=== PATIENT | male | born 1935 | race Caucasian/White ===

== ENCOUNTER 2016-06-19 09:29 | Emergency (ER) | payer MEDICARE, BC ==
[~2016-06-19] VITALS: Ht 167.6 cm; Wt 78.0 kg
[~2016-06-19 09:29] MED LIST: ASCO500C PO; TAB-TAB PO; VITA20003 PO; ZOCO40TA PO; ZOFR4TAB PO
[2016-06-19 09:33] VITALS: BP 130/73; PULSE 74; RESP 16; TEMP 97.7; O2SAT 99
[2016-06-19] MEDS ORDERED: SIMV40TA PO (09:43)
[2016-06-19] MEDS ORDERED: KETOROLAC TROMETHAMINE 60 MG/2 ML (IM) VIAL IM ONE (09:45)
--- NOTE | 2016-06-19 09:46 | PD ---
HPI Chief Complaint: Musculoskeletal Complaint Time Seen by Provider: 09:38 Travel History International Travel<30 days: No Contact w/Intl Traveler<30days: No Traveled to known affect area: No History of Present Illness HPI Patient is a 81 year old male who comes in complaining of pain to his right knee. He says it has been hurting since last Saturday since playing golf. He says that it started hurting the day after playing golf, but he denies any direct injury to the knee. He says he rested for a few days and then when he played golf again his knee started to hurt again. He said again he rested and it felt better, he played golf yesterday and it is hurting him again. He has been taking Tylenol for the pain, which she says only helps marginally. He denies any falls or trauma to the knee itself. He says he had issues with the left knee and received a steroid shot in the knee that has helped immensely. He denies any other complaints at this time. [facility] Past Medical History High Cholesterol: Yes Immunizations Current: Yes Social History Alcohol Use: Yes (SOC) Tobacco Use: No (NEVER) Substance Use: No Allergies-Medications (Allergen,Severity, Reaction): Coded Allergies: No Known Allergies (Unverified , 06/19/16) Reported Meds & Prescriptions Reported Meds & Active Scripts Active Voltaren Topical (Diclofenac Topical) 1% Gel 1 Applic TOPICAL QID Reported Simvastatin 40 Mg Tab 40 Mg PO HS Review of Systems General / Constitutional: No: Fever, Chills Eyes: No: Blurred Vision HENT: No: Headaches Cardiovascular: No: Chest Pain or Discomfort Respiratory: No: Shortness of Breath Musculoskeletal: Positive: Pain, No: Edema Skin: No Rash, No Change in Pigmentation Neurologic: No: Weakness, Dizziness Physical Exam Narrative GENERAL: Awake and alert in no acute distress. SKIN: Warm and dry. HEAD: Atraumatic. Normocephalic. EYES: Pupils equal and round. No scleral icterus. ENT: Mucous membranes pink and moist. CARDIOVASCULAR: Regular rate and rhythm. No murmur appreciated. RESPIRATORY: No accessory muscle use. Clear to auscultation. Breath sounds equal bilaterally. MUSCULOSKELETAL: No obvious deformities. No clubbing. No cyanosis. No edema. No joint warmth or edema of the right knee. Able to fully extend and flex the knee. No joint laxity. Some pain behind the knee with extension. NEUROLOGICAL: Awake and alert. No obvious cranial nerve deficits. Motor grossly within normal limits. Normal speech. Data Data Last Documented VS Vital Signs Date Time Temp Pulse Resp B/P Pulse Ox O2 Delivery O2 Flow Rate FiO2 06/19/16 09:43 74 16 06/19/16 09:33 97.7 130/73 99 Orders Ketorolac Inj (Toradol Inj) (06/19/16 09:45) Knee, Complete (4vws) (06/19/16 ) ^ Shant Bandage (06/19/16 10:16) MDM Medical Decision Making Medical Screen Exam Complete: Yes Emergency Medical Condition: Yes Differential Diagnosis Knee sprain versus knee fracture versus meniscal injury versus ACL injury versus arthritis Narrative Course Patient is an 81-year-old male comes in complaining of right knee pain. The pain seems to come on after he plays around of golf. There is no direct trauma. Exam shows some pain with extension of his knee. X-ray of the knee performed shows some arthritis, no acute findings. Shant wrap applied to the knee. Patient given a dose of Toradol. Will be discharged with prescription for Voltaren cream. Advised follow-up with orthopedics. Advised to return to the ED as needed for any worsening symptoms. Diagnosis Primary Impression: Knee strain Qualified Code: S86.911A - Knee strain, right, initial encounter Referrals: Kelechi Joseph MD call for appointment Patient Instructions: General Instructions, Knee Sprain (ED) Additional Instructions: Avoid physical exertion for the next week. Wear the shant wrap for stability and comfort. Take Tylenol as needed for pain. You can apply the voltaran cream as needed for pain. Follow up with orthopedics. Return to the ED as needed for any worsening symptoms. Scripts Diclofenac Topical (Voltaren Topical)1% Gel1 Applic TOPICAL QID #100 GM Ref 0 Prov:Ysabel Ybarra MD 06/19/16 Disposition: 01 DISCHARGE HOME Condition: Stable Ysabel Ybarra MD Jun 19, 2016 09:46
--- NOTE | 2016-06-19 10:18 | RADHPO ---
EXAM DATE/TIME: 06/19/2016 09:55 [facility] COMPARISON: No previous studies available for comparison. INDICATIONS : Right posterior knee pain with no apparent injury. MEDICAL HISTORY : None. SURGICAL HISTORY : None. ENCOUNTER: Initial ACUITY: 1 week PAIN SCORE: 7/10 LOCATION: Right posterior knee FINDINGS: Four view examination of the right knee demonstrates no evidence of fracture or dislocation. Bony mi neralization is normal. The articular surfaces are intact with only minimal osteoarthritic changes. Small cortical spurs off the posterior proximal tibial diaphysis are most characteristic of benign te ndinous attachments. The suprapatellar soft tissues have a normal configuration. CONCLUSION: 1. Minimal osteoarthritic changes. Benign cortical spurs of the proximal posterior tibial diaphysis. 2. No fracture or effusion. Herve Treviño MD on June 19, 2016 at 10:14 Board Certified Radiologist. This report was verified electronically.
[2016-06-19] MEDS ORDERED: DICL1GEL TOPICAL (10:33)
== END 2016-06-19 10:48 | disposition home or self-care (01) ==
LOC: PHEFT 09:29
DX: S86.911A Strain of unspecified muscle(s) and tendon(s) at lower leg level, right leg, initial encounter (principal); E78.00 Pure hypercholesterolemia, unspecified; X58.XXXA Exposure to other specified factors, initial encounter; Y93.53 Activity, golf; Y92.39 Other specified sports and athletic area as the place of occurrence of the external cause
CPT/HCPCS: 73564; 96372; 99283; J1885

== ENCOUNTER 2017-05-26 05:50 | Emergency (ER) | payer MEDICARE, BC | END 2017-05-26 07:09 | disposition home or self-care (01) | LOC: PHED 05:50 | DX: J04.0 Acute laryngitis (principal) | CPT/HCPCS: 99283 ==